=== PATIENT | male | born 1945 | race Caucasian/White ===

== ENCOUNTER 2016-03-03 07:33 | Inpatient (IN) | payer OTHER ==
[~2016-03-03] VITALS: Ht 188 cm; Wt 102.9 kg
[~2016-03-03 07:33] MED LIST: BISAC-EVAC10 MG PR; CALCIUM 600 +1 EAC2 PO; DIMENHYDRINATE50 MG PO; DITROPAN XL5 MG PO; DUONEB 2.5-0.5 M3 ML AEROSOL; FLEET ENEMA-AD118 ML PR; FLORASTOR250 MG PO; GLUCERNA 1.5 C237 ML PO; JEVITY1000 M1 PO; LO-DOSE ASPIRIN81 M2 PO; MILK OF MAGN PO; MOBIC7.5 MG PO; PLAVIX75 MG PO; SENEXON-S TABL1 EACH PO; SINGULAIR10 MG PO; TRANSDERM-SCO1 PATCH TD; TYLENOL REGULA325 MG PO
[2016-03-03 08:41] VITALS: BP 126/95
[2016-03-03 18:27] VITALS: BP 168/60
[2016-03-03 18:58] VITALS: BP 168/60
[2016-03-03 19:40] VITALS: BP 138/86
[2016-03-04] VITALS (7 sets, daily range): BP systolic 113–169; BP diastolic 69–98
[2016-03-05 03:50] VITALS: BP 145/88
[2016-03-05 07:41] VITALS: BP 137/90
[2016-03-05 12:00] VITALS: BP 142/84
== END 2016-03-05 15:46 | DRG 472 ==
LOC: 2SOUTH 07:33 → 3EAST 07:33 → 2SOUTH 15:02 → 3EAST 18:23
PROC: 0RG20A0 Fusion of 2 or more Cervical Vertebral Joints with Interbody Fusion Device, Anterior Approach, Anterior Column, Open Approach (ICD-10-PCS; principal; 2016-03-04)
DX: M48.10 Ankylosing hyperostosis [Forestier], site unspecified (principal); I69.952 Hemiplegia and hemiparesis following unspecified cerebrovascular disease affecting left dominant side; R13.10 Dysphagia, unspecified; Z93.1 Gastrostomy status; M25.78 Osteophyte, vertebrae; M35.3 Polymyalgia rheumatica; I10 Essential (primary) hypertension; G47.30 Sleep apnea, unspecified; F17.210 Nicotine dependence, cigarettes, uncomplicated
CPT/HCPCS: 71010; 72040; 74230; 76000; 92610 GN; 92611 GN; 93005; 94799; C1713; J0131; J0690; J1100; J1170; J2250; J2405; J2710; J3010; J3480